=== PATIENT | female | born 1965 | race Caucasian/White ===

== ENCOUNTER → 2016-12-20 | Outpatient (CLI) | payer OTHER ==
--- NOTE | 2016-12-20 16:24 | CT ---
EXAMINATION TYPE: CT chest abdomen w con DATE OF EXAM: 12/20/2016 11:06 AM INDICATION: LUQ swelling and pain COMPARISON: NONE CT DLP: 664.3 mGycm CONTRAST: Performed with Oral Contrast and with IV Contrast, patient injected with 100 mL of Omnipaque 300. TECHNIQUE: Axial images at 5 mm thick sections. Reconstructed images in the coronal plane. Delayed images through the kidneys. FINDINGS: CT CHEST: Portion of the thyroid visualized is normal. There is some streak opacity within the posterior medial right lung base most likely on the basis of atelectasis. No suspicious masses are evident. No enlarged mediastinal or hilar adenopathy is evident. The ascending aorta diameter at the level of the main pulmonary artery is 2.6 cm. The main pulmonary artery diameter at the bifurcation is 2.[address] ABDOMEN: Liver: Normal Spleen: Normal Pancreas: Normal Adrenal glands: The adrenal glands are normal. Gallbladder: Normal Kidneys: No masses are evident. No hydronephrosis is present. There is a 2.6 cm cyst measuring 12 H [place] units on the lateral mid right kidney. A 0.7 cm nonobstructing left renal stone is likely w ithin the anterior superior pole left kidney couple of additional punctate calcifications on the left without evidence of obstruction cannot be excluded. Somewhat difficult to identify given the contras t excretion at the time of the exam. Delayed images were obtained through the kidneys, which remain unremarkable. Aorta: Vascular calcification is within the aorta. Inferior vena cava: Normal. IMPRESSIONS: 1. Probable mild streak atelectasis posterior medial right lung base. 2. Nonobstructing left renal stones.
== END | disposition home or self-care (01) ==
LOC: RADCTMAIN 10:07
PROVIDERS: ATTEND Family Medicine
DX: N20.0 Calculus of kidney (principal); Z85.9 Personal history of malignant neoplasm, unspecified
CPT/HCPCS: 71260; 74160; Q9967

== ENCOUNTER → 2017-01-14 | Outpatient (CLI) | payer OTHER ==
--- NOTE | 2017-01-15 08:24 | US ---
EXAMINATION TYPE: US mass soft tissue chest/back DATE OF EXAM: 01/14/2017 1:08 PM COMPARISON: NONE CLINICAL HISTORY: M79.9 Soft tissue mass. Patient feels lump from back around the side and ends in th e front on the left side for three months, area is painful. Scanned left side from back to front over palpable area per patient, as well as the right side for co mparison. No definite abnormality noted. No discrete solid or cystic areas are identified. Subcutaneous tissue and muscular tissue signal appe ars normal. IMPRESSION: 1. No discrete abnormality by ultrasound. If additional evaluation would be of benefit, consider MRI.
== END | disposition home or self-care (01) ==
LOC: RADUSWWP 12:46
PROVIDERS: ATTEND Family Medicine
DX: M79.9 Soft tissue disorder, unspecified (principal)

== ENCOUNTER → 2017-02-17 | Outpatient (CLI) | payer OTHER ==
--- NOTE | 2017-02-17 12:06 | US ---
EXAMINATION TYPE: US kidneys/renal and bladder DATE OF EXAM: 02/17/2017 COMPARISON: CT chest and abdomen December 20, 2016 CLINICAL HISTORY: N28.1 R Renal Cyst. EXAM MEASUREMENTS: Right Kidney: 11.0 x 4.5 x 4.5 cm Left Kidney: 10.6 x 4.2 x 4.7 cm Right Kidney: lateral cyst measuring 2.1 x 2.4 x 2.6 Left Kidney: 1.0 x 0.6 x 0.9cm Bladder: wnl Bilateral Jets seen: Yes There is no evidence for hydronephrosis at this point in time. No nephrolithiasis is seen. No ashly rning solid or cystic masses are identified. The urinary bladder is anechoic. It is not greatly dis tended. Bilateral ureteral jets are seen. A 2.6 cm simple appearing cyst right kidney mid to lower po le level is redemonstrated. Technologist thomas shadowing 9 mm focus centrally in left kidney correlat ing with calculus on CT. IMPRESSION: Simple 2.6 cm cyst right kidney is redemonstrated. There is nonobstructing 9 mm calculus centrally in left kidney also again seen. No significant new findings are evident.
== END | disposition home or self-care (01) ==
LOC: RADUSWWP 09:46
PROVIDERS: ATTEND Internal Medicine Nephrology
DX: N28.1 Cyst of kidney, acquired (principal); N20.0 Calculus of kidney
CPT/HCPCS: 76770

== ENCOUNTER → 2017-06-04 | Outpatient (CLI) | payer OTHER ==
--- NOTE | 2017-06-04 19:01 | US ---
EXAMINATION TYPE: US venous doppler duplex LE RT DATE OF EXAM: 06/04/2017 6:48 PM COMPARISON: NONE CLINICAL HISTORY: M79.661 Pain of R lower Leg. right calf pain SIDE PERFORMED: Right TECHNIQUE: The lower extremity deep venous system is examined utilizing real time linear array sonog yusra with graded compression, doppler sonography and color-flow sonography. VESSELS IMAGED: External Iliac Vein (EIV) Common Femoral Vein Deep Femoral Vein Greater Saphenous Vein * Femoral Vein Popliteal Vein Small Saphenous Vein * Proximal Calf Veins (* superficial vessels) Grayscale, color doppler, spectral doppler imaging performed of the deep veins of the lower extremiti y. There is normal flow, compressibility, vascular waveforms. No evidence of DVT right leg IMPRESSION: Right Leg: Negative for DVT
== END ==
LOC: RADUSMAIN 18:11
PROVIDERS: ATTEND Nurse Practitioner Family
DX: M79.661 Pain in right lower leg (principal)

== ENCOUNTER → 2018-04-02 | Outpatient (CLI) | payer OTHER ==
--- NOTE | 2018-04-02 15:16 | CT ---
EXAMINATION TYPE: CT chest w con DATE OF EXAM: 04/02/2018 COMPARISON: 12/20/2016 HISTORY: 52-year-old female cough and painful respiration , right sided chest pain and difficulty gretta athing. TECHNIQUE: Contiguous axial scanning of the chest after the administration of 100ml mL of Isovue 370. Coronal/sagittal reconstructions performed. CT DLP: 290.6mGycm. Automatic exposure control utilized for a dose reduction. FINDINGS: Heart normal size without pericardial effusion. Aorta normal caliber with conventional arch vessel branching anatomy. Prominent but nonenlarged 1.37 m subcarinal lymph node. Some peribronchial opacity along the right perihilar region along the medial segment right middle lob e bronchus. The segmental bronchus is narrowed and there is medial segmental right middle lobe consol idation. Some additional scattered nodular densities are present in the right middle lobe. Some focal patchy density medial basilar right lower lobe, axial image 51. No pleural effusion. Visualized upper abdomen shows a 1.8 cm left adrenal nodule and a 1.0 cm right adrenal nodule. These were present on 12/20/2016 but are slightly larger having measured 1.3 and 0.9 cm, previously. Suspect ed to represent adrenal adenomas. Bones: No osseous destructive process. IMPRESSION: 1. Extensive medial segment right middle lobe consolidation suggestive of pneumonia. There may be an additional small infiltrate medial right base. 2. Borderline sized subcarinal lymph node and some soft tissue thickening versus additional consolida tion tracking along the medial segment right middle lobe bronchus. Follow-up CT after successful kavitha tment to exclude the possibility of an underlying mass. 3. Redemonstrated adrenal gland nodules, slightly larger from 12/20/2016 measuring up to 1.8 cm probab ly representing adrenal adenomas. These can also be reassessed at follow-up.
== END | disposition home or self-care (01) ==
LOC: RADCTMAIN 14:23
PROVIDERS: ATTEND Nurse Practitioner Family
DX: E27.8 Other specified disorders of adrenal gland (principal); R05 Cough; R07.1 Chest pain on breathing
CPT/HCPCS: 71260; Q9967

== ENCOUNTER → 2018-04-24 | Outpatient (CLI) | payer OTHER ==
--- NOTE | 2018-04-24 14:50 | CT ---
EXAMINATION TYPE: CT chest w con DATE OF EXAM: 04/24/2018 COMPARISON: CT chest April 02, 2018 and older study December 20, 2016. HISTORY: Adrenal mass and enlarged lymph node per order. Prior abnormal CT. CT DLP: 563 mGycm. Automated Exposure Control for Dose Reduction was Utilized. TECHNIQUE: CT scan of the thorax is performed following with IV Contrast, patient injected with 100 mL of Isovue 370. FINDINGS: LUNGS: Mild underlying emphysematous change is felt present. There is near complete interval resoluti on of right middle lobe consolidation with faint areas of groundglass and linear opacity remaining pr esent. No new suspicious groundglass opacity or consolidation is identified. No pleural effusion or p neumothorax is seen bilaterally. MEDIASTINUM: There are no greater than 1 cm hilar or mediastinal lymph nodes. No cardiomegaly or pe ricardial effusion is seen. OTHER: Redemonstration of left adrenal nodule measuring 1.7 x 1.0 cm axial image 56 and smaller nodul e centrally measuring 1.4 x 0.9 cm a right adrenal that are not significantly changed from last 2 exa ms thus favoring benign etiology. Cholecystectomy clips are redemonstrated. Large splenule anteriorly axial image 58 is redemonstrated. Mild to moderate multilevel spurring in thoracic spine is redemons trated. IMPRESSION: Interval near complete resolution of right middle lobe consolidation without suspicious r esidual nodule. Stable small bilateral adrenal nodules since November 2016 favor benign, can be confirme d with adrenal protocol MRI if desired.
== END | disposition home or self-care (01) ==
LOC: RADCTMAIN 13:30
PROVIDERS: ATTEND Nurse Practitioner Family
DX: J18.1 Lobar pneumonia, unspecified organism (principal); E27.8 Other specified disorders of adrenal gland
CPT/HCPCS: 71260; Q9967

== ENCOUNTER → 2018-09-18 | Outpatient (CLI) | payer OTHER | END | disposition home or self-care (01) | LOC: LABWHC1 15:58 | PROVIDERS: ATTEND Ophthalmology | DX: H47.11 Papilledema associated with increased intracranial pressure (principal) | CPT/HCPCS: 36415; 82565 ==

== ENCOUNTER → 2018-09-21 | Outpatient (CLI) | payer OTHER ==
--- NOTE | 2018-09-21 08:35 | MR ---
EXAMINATION TYPE: MR brain wo/w con DATE OF EXAM: 09/21/2018 COMPARISON: NONE HISTORY: Papilledema, left eye TECHNIQUE: Multiplanar, multisequence images of the brain and brainstem is performed without and with IV contras t, utilizing 7.5 mL intravenous Gadavist . FINDINGS: Diffusion weighted images demonstrate no evidence of a recent infarct or other diffusion ab normality. There is no extra-axial fluid collection. There are few T2/FLAIR hyperintense foci within the subcortical white matter of the frontal lobes such as on FLAIR and axial fat sat image 19 on the left and 17 on the right. Pulsation artifact is seen through the cerebral hemispheres. The ventricul ar system and cisternal spaces are normal in size and appearance. The brain volume is age appropriat e. Midline structures demonstrate normal morphology. The craniocervical junction appears within normal limits. Post contrast images demonstrate no abnormal enhancement. Moderate mucosal thickening is see n within the ethmoid sinuses. The remaining visualized sinuses are clear and the globes are intact. N o excessive perineural/subarachnoid fluid surrounding the optic nerves. No undulation of the optic ne rves. No flattening of the globes posteriorly. No partially empty sella turcica. Findings are all summers ited by patient motion. IMPRESSION: 1. The exam is slightly limited by patient motion however there is no excessive perineural subarachno id fluid surrounding the optic nerves, no undulation of the optic nerves, and no evidence of a partia lly into sella turcica. Findings that could be seen in increased intracranial pressure and relate to this patient's papilledema. 2. No abnormal intracranial enhancement. Again although the exam including the orbits is limited by p atient motion there is no gross evidence of intraconal or extraconal mass. No gross evidence of orbit al mass. 3. Mild burden nonspecific white matter change, most commonly on the basis of chronic microangiopathy however given the frontal lobe distribution findings could relate to sequela of migraines. 4. Moderate ethmoid paranasal sinus disease.
== END | disposition home or self-care (01) ==
LOC: RADMRIMAIN 07:08
PROVIDERS: ATTEND Ophthalmology
DX: I67.9 Cerebrovascular disease, unspecified (principal); R90.82 White matter disease, unspecified
CPT/HCPCS: 70553; A9585

== ENCOUNTER 2020-07-09 16:19 | Emergency (ER) | payer OTHER ==
[2020-07-09 17:18] VITALS: TEMP 97.5
[2020-07-09 18:33] LABS: Basophils % (A) 0 %; Eosinophils # (A) 0.2 k/uL (0-0.7); Eosinophils % (A) 2 %; HCT 43.9 % (34.0-46.0); HGB 14.4 gm/dL (11.4-16.0); Lymphocytes # (A) 2.2 k/uL (1.0-4.8); Lymphocytes % (A) 24 %; MCHC 32.8 g/dL (31.0-37.0); MCV 91.4 fL (80.0-100.0); Mean Platelet Volume 7.8; Monocytes # (A) 0.5 k/uL (0-1.0); Monocytes % (A) 5 %; Neutrophils # (A) 6.1 k/uL (1.3-7.7); Neutrophils % (A) 67 %; Platelet Count 301 k/uL (150-450); RDW 13.2 % (11.5-15.5); WBC 9.1 k/uL (3.8-10.6)
[2020-07-09 18:46] LABS: ALT 28 U/L (4-34); AST 47 U/L (14-36); African American GFR (CKD) >90 (>60 ml/min/1.73 sqM); Albumin 3.9 g/dL (3.5-5.0); Alkaline Phosphatase 134 U/L (38-126); Anion Gap 5 mmol/L; Blood Urea Nitrogen 12 mg/dL (7-17); Calcium 9.2 mg/dL (8.4-10.2); Carbon Dioxide 25 mmol/L (22-30); Chloride 108 mmol/L (98-107); Glucose 95 mg/dL (74-99); Non-African American GFR(CKD) >90 (>60 ml/min/1.73 sqM); Potassium 4.1 mmol/L (3.5-5.1); Sodium 138 mmol/L (137-145); Total Bilirubin 0.4 mg/dL (0.2-1.3); Total Protein 6.9 g/dL (6.3-8.2)
[2020-07-09] MEDS ORDERED: SULFAMETHOX-TMP 800-160MG 1 EACH TAB PO STA (19:18)
[2020-07-09] MEDS ORDERED: SULFAMETH-TMP DS STARTER PACK 2 TAB BTL PO STA (19:18)
--- NOTE | 2020-07-09 19:18 | XR ---
EXAMINATION TYPE: XR hand complete LT DATE OF EXAM: 07/09/2020 COMPARISON: None HISTORY: Postop infection. Surgery. TECHNIQUE: 3 views FINDINGS: There is some narrowing of the IP joints and more noticeable at the DIP joint of the index finger. There is no fracture nor dislocation. There are no erosions. IMPRESSION: Osteoarthritis. No fracture seen.
--- NOTE | 2020-07-09 19:36 | ED ---
General Adult HPI - General Chief complaint: Recheck/Abnormal Lab/Rx Stated complaint: Post Op L Hand Infection Time Seen by Provider: 07/09/20 18:04 Source: patient, RN notes reviewed, old records reviewed Mode of arrival: ambulatory Limitations: no limitations - History of Present Illness Initial comments: 55-year-old female patient ED for evaluation. Patient reports that she had trigger finger surgery on her left hand 13 days ago. She reports over the last 3 days she's been having pain around the sutures proximal to the third and fourth MCP joint. She reports that she was able to express some drainage out of it. Denies any fevers. Denies any other acute complaints. Systemic: Pt denies fatigue, fever/chills, rash. Pt denies weakness, night sweats, weight loss. Neuro: Pt denies headache, visual disturbances, syncope or pre-syncope. HEENT: Pt denies ocular discharge or irritation, otalgia, rhinorrhea, pharyngitis or notable lymphadenopathy. Cardiopulmonary: Pt denies chest pain, SOB, heart palpitations, dyspnea on exertion. Abdominal/GI: Pt denies abdominal pain, n/v/d. : Pt denies dysuria, burning w/ urination, frequency/urgency. Denies new onset urinary or bowel incontinence. MSK: Pt denies myalgia, loss of strength or function in extremities. Neuro: Pt denies new onset weakness, paresthesias. - Related Data Previous Rx's Medication Instructions Recorded Ibuprofen [Motrin] 600 mg PO Q6HR PRN #20 tab 04/02/16 Sulfamethox-Tmp 800-160Mg [Bactrim 1 tab PO Q12HR #20 tab 07/09/20 DS 800-160 mg] Allergies Allergy/AdvReac Type Severity Reaction Status Date / Time prochlorperazine Allergy Unknown Verified 07/09/20 17:18 [From Compazine] prochlorperazine edisylate Allergy Unknown Verified 07/09/20 17:18 [From Compazine] prochlorperazine maleate Allergy Unknown Verified 07/09/20 17:18 [From Compazine] Review of Systems ROS Statement: Those systems with pertinent positive or pertinent negative responses have been documented in the HPI. ROS Other: All systems not noted in ROS Statement are negative. Past Medical History Past Medical History: Heart Failure, Hypertension History of Any Multi-Drug Resistant Organisms: None Reported Past Surgical History: Appendectomy, Section Additional Past Surgical History / Comment(s): "half a lung removed". right forearm surgery. left hand surgery Past Psychological History: No Psychological Hx Reported Smoking Status: Current every day smoker Past Alcohol Use History: Rare Past Drug Use History: Marijuana General Exam - General Exam Comments Initial Comments: Constitutional: NAD, AOX3, Pt has pleasant affect. HEENT: NC/AT, trachea midline, neck supple, no lymphadenopathy. External ears appear normal, without discharge. Mucous membranes moist. Eyes PERRLA, EOM intact. There is no scleral icterus. No pallor noted. Cardiopulmonary: RRR, no murmurs, rubs or gallops, no JVD noted. Lungs CTAB in anterior and posterior quiroz. No peripheral edema. Abdominal exam: Abdomen soft and non-distended. Neuro: CN II-XII grossly intact. No nuchal rigidity. No raccon eyes, no albright sign, no hemotympanum. No cervical spinal tenderness. MSK: Mild tenderness to the area proximal to the third and 4th metacarpal. No purulent drainage. No fluctuance. Very mild erythema. ROM of fingers intact. No tenderness to the flexor sheath. Limitations: no limitations Course Vital Signs 07/09/20 17:14 Temperature 97.5 F L Pulse Rate 86 Respiratory 18 Rate Blood Pressure 145/107 O2 Sat by Pulse 99 Oximetry Medical Decision Making - Medical Decision Making 55 old female patient to ED for possible infection of hand post surgery 13 days ago. No drainage is noted. Laboratory investigations are unremarkable and films displayed osteoarthritis no acute fracture seen. Patient initiated on Rocephin emergency department no discharge of Bactrim. Patient to follow-up with her surgeon tomorrow and return for any worsening symptoms. Case discussed and pt seen by Dr. Arteaga. - Lab Data Result diagrams: 07/09/20 18:22 07/09/20 18:22 Lab Results 07/09/20 07/09/20 07/09/20 Range/Units 18:22 18:22 18:22 WBC 9.1 (3.8-10.6) k/uL RBC 4.80 (3.80-5.40) m/uL Hgb 14.4 (11.4-16.0) gm/dL Hct 43.9 (34.0-46.0) % MCV 91.4 (80.0-100.0) fL MCH 30.0 (25.0-35.0) pg MCHC 32.8 (31.0-37.0) g/dL RDW 13.2 (11.5-15.5) % Plt Count 301 (150-450) k/uL Neutrophils % 67 % Lymphocytes % 24 % Monocytes % 5 % Eosinophils % 2 % Basophils % 0 % Neutrophils # 6.1 (1.3-7.7) k/uL Lymphocytes # 2.2 (1.0-4.8) k/uL Monocytes # 0.5 (0-1.0) k/uL Eosinophils # 0.2 (0-0.7) k/uL Basophils # 0.0 (0-0.2) k/uL Sodium 138 (137-145) mmol/L Potassium 4.1 (3.5-5.1) mmol/L Chloride 108 H (98-107) mmol/L Carbon Dioxide 25 (22-30) mmol/L Anion Gap 5 mmol/L BUN 12 (7-17) mg/dL Creatinine 0.72 (0.52-1.04) mg/dL Est GFR (CKD-EPI)AfAm >90 (>60 ml/min/1.73 sqM) Est GFR (CKD-EPI)NonAf >90 (>60 ml/min/1.73 sqM) Glucose 95 (74-99) mg/dL Plasma Lactic Acid Balaji 0.8 (0.7-2.0) mmol/L Calcium 9.2 (8.4-10.2) mg/dL Total Bilirubin 0.4 (0.2-1.3) mg/dL AST 47 H (14-36) U/L ALT 28 (4-34) U/L Alkaline Phosphatase 134 H (38-126) U/L Total Protein 6.9 (6.3-8.2) g/dL Albumin 3.9 (3.5-5.0) g/dL Disposition Clinical Impression: Hand pain, Post-operative infection Disposition: HOME SELF-CARE Condition: Stable Instructions (If sedation given, give patient instructions): Wound Infection (ED) Additional Instructions: Take antibiotics as directed. Follow up with surgeon tomorrow. Return to ED with any worsening symptoms. Prescriptions: Sulfamethox-Tmp 800-160Mg [Bactrim DS 800-160 mg] 1 tab PO Q12HR #20 tab Is patient prescribed a controlled substance at d/c from ED?: No Referrals: Tamiko Steel MD [Primary Care Provider] - 1-2 days
[2020-07-09 20:17] VITALS: BP 151/99; PULSE 70; RESP 16
== END 2020-07-09 20:00 | disposition home or self-care (01) ==
LOC: EC 16:19
DX: T81.40XA Infection following a procedure, unspecified, initial encounter (principal); M79.642 Pain in left hand; I11.0 Hypertensive heart disease with heart failure; I50.9 Heart failure, unspecified; F17.200 Nicotine dependence, unspecified, uncomplicated; Z88.8 Allergy status to other drugs, medicaments and biological substances
CPT/HCPCS: 36415; 80053; 83605; 85025; 87040; 73130; 99284; 96365; J0696

== ENCOUNTER → 2021-04-30 | Outpatient (CLI) | payer OTHER ==
--- NOTE | 2021-05-02 13:47 | MM ---
Reason for exam: screening (asymptomatic). Last mammogram was performed 14 years and 1 month ago. History: Patient is postmenopausal and history of other cancer. Took hormonal contraceptives for 5 years. Physical Findings: A clinical breast exam by your physician is recommended on an annual basis and results should be correlated with mammographic findings. MG Screening Mammo w CAD Bilateral CC, MLO, and XCCL view(s) were taken. Prior study comparison: October 16, 2018, mammogram, performed at [facility]. The breast tissue is heterogeneously dense. This may lower the sensitivity of mammography. There is no discrete abnormality. No significant changes when compared with prior studies. ASSESSMENT: Negative, BI-RAD 1 RECOMMENDATION: Routine screening mammogram of both breasts in 1 year.
== END | disposition home or self-care (01) ==
LOC: RADMAMWWP 09:58
PROVIDERS: ATTEND Family Medicine
DX: Z12.31 Encounter for screening mammogram for malignant neoplasm of breast (principal)
CPT/HCPCS: 77067

== ENCOUNTER → 2021-05-15 | Outpatient (CLI) | payer OTHER | END | disposition home or self-care (01) | LOC: LABWHC1 12:57 | PROVIDERS: ATTEND Obstetrics & Gynecology | DX: N83.202 Unspecified ovarian cyst, left side (principal) | CPT/HCPCS: 36415; 86304 ==

== ENCOUNTER 2021-06-14 08:16 | Day surgery (SDC) | payer OTHER ==
[2021-04-04 12:26] VITALS: BMI 27.4
[~2021-06-14 08:16] MED LIST: DEXAMETHASONE SOD PHOSPHATE 4 MG/ML 1 ML VIAL IV ONE; HYDROmorphone 0.5 MG/0.5 ML SYRINGE IVP PRN; LACTATED RINGERS 1,000 ML IV SCH; LIDOCAINE 1% (10MG/ML) FOR IV START INTRADERMA PRN; MIDAZOLAM 2 MG/2 ML VIAL IV PRN; ONDANSETRON 4 MG/2 ML VIAL IVP ONE
[2021-06-14] MEDS ORDERED: LACTATED RINGERS 1,000 ML IV ONE (08:53)
[2021-06-14] MEDS ORDERED: LIDOCAINE 1% (10MG/ML) FOR IV START INTRADERMA ONE (08:53)
[2021-06-14 08:58] VITALS: TEMP 97.5
[2021-06-14] MEDS ORDERED: PROPOFOL 10 MG/ML 20 ML VIAL IV ONE (09:22)
--- NOTE | 2021-06-14 09:28 | P.GSHP ---
History of Present Illness H&P Date: 06/14/21 Chief Complaint: Screening colonoscopy Is a 56-year-old female who presents today for screening colonoscopy. Patient has a significant complaints. Past Medical History Past Medical History: Asthma, Cancer, Heart Failure, COPD, Hearing Disorder / Deafness, Hyperlipidemia, Hypertension, Osteoarthritis (OA) Additional Past Medical History / Comment(s): POSSIBLE HEART FAILURE, MOLE PREG- TREATED WITH CHEMO History of Any Multi-Drug Resistant Organisms: None Reported Past Surgical History: Section, Cholecystectomy Additional Past Surgical History / Comment(s): "half of rt lung removed r/t mass", RIGHT HAND SURGERY. right forearm surgery-WITH HARDWARE. left hand surgery Past Anesthesia/Blood Transfusion Reactions: Previous Problems w/ Anesthesia Additional Past Anesthesia/Blood Transfusion Reaction / Comment(s): PATIENT STATES TAKES HER LONGER TO WAKE UP " Smoking Status: Current every day smoker - Past Family History Father Family Medical History: Cancer Medications and Allergies Home Medications Medication Instructions Recorded Confirmed Type Albuterol Sulfate [Albuterol 2 puff PO Q6H PRN 04/04/21 06/14/21 History Sulfate Hfa] Ipratropium-Albuterol Nebulize 3 ml INHALATION Q6H PRN 04/04/21 06/14/21 History [Duoneb 0.5 mg-3 mg/3 ml Soln] Loratadine [Claritin] 10 mg PO DAILY 04/04/21 06/14/21 History Oxybutynin Chloride [Ditropan] 5 mg PO DAILY 04/04/21 06/14/21 History Simvastatin [Zocor] 5 mg PO HS 04/04/21 06/14/21 History amLODIPine BESYLATE 5 mg PO HS 04/04/21 06/14/21 History lisinopriL [Zestril] 20 mg PO DAILY 04/04/21 06/14/21 History Allergies Allergy/AdvReac Type Severity Reaction Status Date / Time No Known Allergies Allergy Verified 06/14/21 08:34 Surgical - Exam Vital Signs Temp Pulse Resp BP Pulse Ox 97.5 F L 87 16 176/105 99 06/14/21 08:56 06/14/21 08:56 06/14/21 08:56 06/14/21 08:56 06/14/21 08:56 - General well developed, well nourished, no distress - Eyes PERRL - ENT normal pinna - Neck no masses - Respiratory normal expansion - Cardiovascular Rhythm: regular - Abdomen Abdomen: soft, non tender Assessment and Plan Assessment: We'll perform screening colonoscopy
--- NOTE | 2021-06-14 09:42 | P.OP ---
Date of Procedure: 06/14/21 Preoperative Diagnosis: Screening colonoscopy Postoperative Diagnosis: Normal colon Procedure(s) Performed: Colonoscopy Anesthesia: MAC Surgeon: Naldo Martin Pathology: none sent Condition: stable Disposition: PACU Description of Procedure: PROCEDURE: The patient was placed on the endoscopy table in the lateral position. Digital rectal examination was performed which revealed no abnormalities. T Flexible colonoscope was then placed in the patient's anus and passed throughout the entire colon. The ileocecal valve was visualized. The cecum, ascending, transverse, descending and sigmoid colon were normal. The rectum was normal as well. There were no masses, polyps or diverticula noted in the entire colon. SUMMARY OF FINDINGS: Normal colonoscopy.
[2021-06-14] MEDS ORDERED: hydrALAZINE HCL 20 MG/ML 1 ML VIAL ONE (09:55)
[2021-06-14] MEDS ORDERED: hydrALAZINE HCL 20 MG/ML 1 ML VIAL IV ONE (09:57)
[2021-06-14] MEDS ORDERED: hydrALAZINE HCL 20 MG/ML 1 ML VIAL IVP ONE (10:10)
[2021-06-14 10:13] VITALS: RESP 18
[2021-06-14 10:25] VITALS: BP 153/94; PULSE 86
== END 2021-06-14 10:49 | disposition home or self-care (01) ==
LOC: ORWHC2ENDO 08:16
PROVIDERS: ATTEND Surgery
DX: Z12.11 Encounter for screening for malignant neoplasm of colon (principal); J44.9 Chronic obstructive pulmonary disease, unspecified; I11.0 Hypertensive heart disease with heart failure; I50.9 Heart failure, unspecified; E78.5 Hyperlipidemia, unspecified; H91.90 Unspecified hearing loss, unspecified ear; M19.90 Unspecified osteoarthritis, unspecified site; Z92.21 Personal history of antineoplastic chemotherapy; Z90.49 Acquired absence of other specified parts of digestive tract; Z90.2 Acquired absence of lung [part of]; Z80.9 Family history of malignant neoplasm, unspecified; Z98.891 History of uterine scar from previous surgery; F17.200 Nicotine dependence, unspecified, uncomplicated; Z79.899 Other long term (current) drug therapy
CPT/HCPCS: J0360; J2704; G0121

== ENCOUNTER → 2021-06-21 | Outpatient (CLI) | payer OTHER ==
[2021-06-21 13:13] VITALS: BP 184/110; PULSE 81; RESP 18; TEMP 98.2
--- NOTE | 2021-06-21 13:37 | P.GSHP ---
History of Present Illness H&P Date: 06/21/21 Chief Complaint: inverted nipple right breast Neida is a 56 year old white female seen in consultation for Dr. Darling Caballero regarding an inverted right nipple. This has been like this for 3-4 years. This is not on the left side. She has no nipple discharge. She does not feel any lumps masses or nodules of concern in either breast. She has never had any surgery on her breast. She is not complaining of any trauma or infection in the breast. [place] [id number] which was benign BIRADS 1. Caffeine: rare nicotine: 1 PP/3 days chocolate: several times a week Family History: father: metastic disease ? from where maternal cousin: ? breast Hormone History: menarche: 11 (molar ), breast fed: no, age at first : 19 menopause: 29 chemotherapy for molar ; molar at about age 29; did not do a hysterectomy menopause: 37 hormones: none BCP: 2 years Surgical history: gallbladder lung cancer 2019 right arm plate and screws Medical History: HTN Social History: Nicotine: One pack every 3 days Alcohol: none drugs: Marijuana approximately 3 times a month - Constitutional Constitutional: Denies chills, Denies fever - EENT Eyes: denies blurred vision, denies pain Ears: bilateral: decreased hearing, deny: tinnitus Ears, nose, mouth and throat: Denies headache, Denies sore throat - Breasts Breasts: bilateral: as per HPI - Cardiovascular Cardiovascular: Denies chest pain, Denies shortness of breath - Respiratory Comment: history of lung cancer, asthma Respiratory: Reports as per HPI - Gastrointestinal Gastrointestinal: Denies abdominal pain, Denies diarrhea, Denies nausea, Denies vomiting - Genitourinary (Female) Genitourinary: Denies dysuria, Denies hematuria - Menstruation Menstruation: Reports postmenopausal - Musculoskeletal Comment: arthritis - Integumentary Integumentary: Denies pruritus, Denies rash - Neurological Neurological: Denies numbness, Denies weakness - Psychiatric Psychiatric: Denies anxiety, Denies depression - Endocrine Endocrine: Denies fatigue, Denies weight change - Hematologic/Lymphatic Comment: none - Allergic/Immunologic Allergic/Immunologic: Reports seasonal allergies Past Medical History Past Medical History: Asthma, Cancer, Heart Failure, COPD, Hearing Disorder / Deafness, Hyperlipidemia, Hypertension, Osteoarthritis (OA) Additional Past Medical History / Comment(s): POSSIBLE HEART FAILURE, MOLE PREG- TREATED WITH CHEMO History of Any Multi-Drug Resistant Organisms: None Reported Past Surgical History: Section, Cholecystectomy Additional Past Surgical History / Comment(s): "half of rt lung removed r/t mass", RIGHT HAND SURGERY. right forearm surgery-WITH HARDWARE. left hand surgery Past Anesthesia/Blood Transfusion Reactions: Previous Problems w/ Anesthesia Additional Past Anesthesia/Blood Transfusion Reaction / Comment(s): PATIENT STATES TAKES HER LONGER TO WAKE UP " Past Psychological History: No Psychological Hx Reported Smoking Status: Current every day smoker Past Alcohol Use History: Rare Additional Past Alcohol Use History / Comment(s): STARTED SMOKING AT AGE 16 SMOKES 9 CIG A DAY Past Drug Use History: Marijuana Additional Drug Use History / Comment(s): OCCASIONAL USE - Past Family History Father Family Medical History: Cancer Medications and Allergies Home Medications Medication Instructions Recorded Confirmed Type Albuterol Sulfate [Albuterol 2 puff PO Q6H PRN 04/04/21 06/21/21 History Sulfate Hfa] Ipratropium-Albuterol Nebulize 3 ml INHALATION Q6H PRN 04/04/21 06/21/21 History [Duoneb 0.5 mg-3 mg/3 ml Soln] Loratadine [Claritin] 10 mg PO DAILY 04/04/21 06/21/21 History Oxybutynin Chloride [Ditropan] 5 mg PO DAILY 04/04/21 06/21/21 History Simvastatin [Zocor] 5 mg PO HS 04/04/21 06/21/21 History amLODIPine BESYLATE 5 mg PO HS 04/04/21 06/21/21 History lisinopriL [Zestril] 20 mg PO DAILY 04/04/21 06/21/21 History Allergies Allergy/AdvReac Type Severity Reaction Status Date / Time No Known Allergies Allergy Verified 06/21/21 13:10 Surgical - Exam Vital Signs Temp Pulse Resp BP Pulse Ox 98.2 F 81 18 184/110 99 06/21/21 13:10 06/21/21 13:10 06/21/21 13:10 06/21/21 13:10 06/21/21 13:10 BMI 28.6 - General no distress - Eyes normal ocular movement - ENT normal nares - Neck trachea midline - Respiratory normal respiratory effort, clear to auscultation - Cardiovascular Rhythm: regular Heart Sounds: normal: S1, S2 - Abdomen Abdomen: soft, non tender, no guarding, no rigid, no rebound - Integumentary normal turgor - Neurologic no disoriented, no combative - Musculoskeletal normal gait, normal posture - Psychiatric oriented to time, oriented to person, oriented to place, speech is normal, memor y intact Breast Exam: BRA: 40G inspection: Right nipple inverted, bilateral grade 3 ptosis Palpation: Right breast: Multiple positional exam fibrocystic changes no dominant masses or nodules of concern, right nipple inverted Right axilla: No adenopathy of concern Left breast: Multi-positional exam fibrocystic changes no dominant masses or nodules of concern no nipple inversion Left axilla: No adenopathy of concern Results Bilateral mammogram reviewed with Dr. Bar, no specific lesions of concern identified Assessment and Plan Assessment: Impression: 1. Bilateral fibrocystic breast changes 2. Right nipple inversion/chronic 3. Personal history of breast cancer 4. Bilateral mammogram BIRADS 1 [place] [id number] Plan: 1. Ultrasound behind area of right nipple, with follow up after this CC: Dr. Tamiko Soler
== END ==
LOC: WWCWWP 12:43
PROVIDERS: ATTEND Surgery
DX: Z53.9 Procedure and treatment not carried out, unspecified reason (principal)

== ENCOUNTER → 2021-06-25 | Outpatient (CLI) | payer OTHER ==
--- NOTE | 2021-06-25 13:57 | USB ---
Reason for exam: clinical finding. History: Patient is postmenopausal and history of other cancer. Took hormonal contraceptives for 5 years. Physical Findings: Nurse did not find any significant physical abnormalities on exam. US Breast Limited RT Right limited breast ultrasound including focal area of concern, retroareolar and axilla demonstrates a 0.4 x 0.3 x 0.3cm oval, solid, hyperechoic lesion at 4 o'clock, a 0.4 x 0.5 x 0.2cm oval, irregular, hypoechoic lesion at 6 o'clock for which a biopsy is recommended, duct ectasia at the posterior nipple and a 1.0 x 1.1 x 0.7cm lymph node at the axilla These results were verbally communicated with the patient and result sheet given to the patient on 06/25/21. ASSESSMENT: Suspicious, BI-RAD 4 RECOMMENDATION: Ultrasound core biopsy of the right breast. Called office with mammographic findings and has scheduled an appointment for the patient for 07/20/21 at 8:[address] Camacho. Biopsy scheduled for 07/20/21 at 10:30. PRELIMINARY REPORT CALLED AND FAXED TO DR. CAMACHO ON 06/25/21.
== END | disposition home or self-care (01) ==
LOC: RADUSWWP 10:26
PROVIDERS: ATTEND Surgery
DX: N64.53 Retraction of nipple (principal)

== ENCOUNTER → 2021-07-20 | Outpatient (CLI) | payer OTHER ==
[2021-07-20 08:54] VITALS: BP 129/90; PULSE 80; RESP 18; TEMP 97.9
--- NOTE | 2021-07-20 09:11 | P.PN ---
Subjective Progress Note Date: 07/20/21 Principal diagnosis: Abnormal right breast ultrasound Neida is a 56 year old white female seen in consultation for Dr. Darling Steel regarding an inverted right nipple. This has been like this for 3-4 years. This is not on the left side. She has no nipple discharge. She does not feel any lumps masses or nodules of concern in either breast. She has never had any surgery on her breast. She is not complaining of any trauma or infection in the breast. [place] [id number] which was benign BIRADS 1. The patient subsequently underwent an ultrasound of the right breast on [id number]. Ultrasound revealed a 0.4 x 0.3 cm solid lesion at 4:00 a 0.4 x 0.5 cm irregular hypoechoic lesion at 6:00 for which biopsy was recommended, duct ectasia at the posterior nipple and a 1 x 1.1 cm lymph node in the axilla. This was considered to be suspicious BIRADS 4 and ultrasound-guided core biopsy of the right breast was recommended. Caffeine: rare nicotine: 1 PP/3 days chocolate: several times a week Family History: father: metastic disease ? from where maternal cousin: ? breast Hormone History: menarche: 11 (molar ), breast fed: no, age at first : 19 menopause: 29 chemotherapy for molar ; molar at about age 29; did not do a hysterectomy menopause: 37 hormones: none BCP: 2 years Surgical history: gallbladder lung cancer 2019 right arm plate and screws Medical History: HTN Social History: Nicotine: One pack every 3 days Alcohol: none drugs: Marijuana approximately 3 times a month - Constitutional Constitutional: Denies chills, Denies fever - EENT Eyes: denies blurred vision, denies pain Ears: bilateral: decreased hearing, deny: tinnitus Ears, nose, mouth and throat: Denies headache, Denies sore throat - Breasts Breasts: bilateral: as per HPI - Cardiovascular Cardiovascular: Denies chest pain, Denies shortness of breath - Respiratory Comment: history of lung cancer, asthma Respiratory: Reports as per HPI - Gastrointestinal Gastrointestinal: Denies abdominal pain, Denies diarrhea, Denies nausea, Denies vomiting - Genitourinary (Female) Genitourinary: Denies dysuria, Denies hematuria - Menstruation Menstruation: Reports postmenopausal - Musculoskeletal Comment: arthritis - Integumentary Integumentary: Denies pruritus, Denies rash - Neurological Neurological: Denies numbness, Denies weakness - Psychiatric Psychiatric: Denies anxiety, Denies depression - Endocrine Endocrine: Denies fatigue, Denies weight change - Hematologic/Lymphatic Comment: none - Allergic/Immunologic Allergic/Immunologic: Reports seasonal allergies Objective - Vital Signs Vital signs: Vital Signs Temp 97.9 F 07/20/21 08:51 Pulse 80 07/20/21 08:51 Resp 18 07/20/21 08:51 BP 129/90 07/20/21 08:51 Pulse Ox 99 07/20/21 08:51 Intake & Output 07/19/21 07/20/21 07/20/21 18:59 06:59 18:59 Weight 81.647 kg - Constitutional General appearance: Present: cooperative - EENT Eyes: Present: EOMI ENT: Present: hearing grossly normal - Neck Neck: Present: normal ROM - Respiratory Respiratory: bilateral: CTA - Cardiovascular Rhythm: regular Heart sounds: normal: S1, S2 - Integumentary Integumentary: Present: normal turgor - Musculoskeletal Musculoskeletal: Present: gait normal - Psychiatric Psychiatric: Present: A&O x's 3, appropriate affect, intact judgment & insight - Additional findings Additional findings: Breast examination: Examination is limited to the right breast cyst patient has had a recent breast exam nipple remains inverted with no discrete lump or mass palpated Assessment and Plan Assessment: Impression: Inverted right nipple Abnormal right breast ultrasound finding Plan: Ultrasound core biopsy area of concern in the right breast patient to follow-up for results afterwards CC: Dr. Tamiko Steel
== END | disposition home or self-care (01) ==
LOC: WWCWWP 08:31
PROVIDERS: ATTEND Surgery
DX: Z53.9 Procedure and treatment not carried out, unspecified reason (principal)

== ENCOUNTER → 2021-07-20 | Day surgery (SDC) | payer OTHER ==
[2021-07-20 09:42] VITALS: RESP 16
[2021-07-20 11:15] VITALS: BP 121/82; PULSE 60; TEMP 97.4
--- NOTE | 2021-07-20 12:06 | USB ---
EXAMINATION TYPE: US biopsy breast VAD RT, MG postbiopsy diagnostic mammo RT wo CAD DATE OF EXAM: 07/20/2021 CLINICAL HISTORY: 56-year-old female R92.8 ABN MAMMO. TECHNIQUE: Ultrasound guided core biopsy of right breast. COMPARISON: 06/25/2021, 04/30/2021 FINDINGS: The procedure of ultrasound guided core biopsy was explained to the patient. Benefits, alt ernatives, and risks were discussed. An informed consent was then obtained. The intended biopsy target, the 5 mm oval hypoechoic structure at the 6:00 position was identified an d targeted for biopsy. Due to the patient's nipple retraction on this side, Dr. Mio Winchester requested rescanning of the subar eolar and periareolar region. This shows unchanged mild duct ectasia as seen previously. No abnormal filling defect or other suspicious findings seen. The patient was placed in supine positioning for imaging and for the procedure. The overlying skin w as prepped and draped in usual sterile fashion. Lidocaine was used as anesthetic into the skin and s ubcutaneous tissue up to area of concern in the 6:00 right breast. Under ultrasound guidance, a 13-gauge vacuum-assisted mammotome biopsy gun was used to obtain 4 core samples. Following this, a wing clip was left in lesion. The patient tolerated the procedure well without any immediate complication. The patient was kept in the radiology department for short stay after the procedure and then discharged home in stable condi tion. Postbiopsy mammogram shows the clip in place, more along the 5:00 position. IMPRESSION: Successful, uncomplicated ultrasound guided core biopsy of tiny 5 mm area of concern in the 6:00 righ t breast. Low suspicion at time of biopsy. Full pathology results to follow. If benign results, six-month follow-up mammogram could be performed.
== END ==
LOC: RADUSWWP 08:32
PROVIDERS: ATTEND Surgery
DX: R92.8 Other abnormal and inconclusive findings on diagnostic imaging of breast (principal); N60.11 Diffuse cystic mastopathy of right breast
CPT/HCPCS: 88305; 77065; 19083; A4648; J2001

== ENCOUNTER → 2021-08-03 | Outpatient (CLI) | payer OTHER ==
--- NOTE | 2021-08-03 13:26 | P.PN ---
Subjective Progress Note Date: 08/03/21 Principal diagnosis: ultrasound core biopsy results/benign Neida is a 56 year old white female seen in consultation for Dr. Darling Caballero regarding an inverted right nipple. This has been like this for 3-4 years. This is not on the left side. She has no nipple discharge. She does not feel any lumps masses or nodules of concern in either breast. She has never had any surgery on her breast. She is not complaining of any trauma or infection in the breast. She had [place] [id number] which was benign BIRADS 1. she had an ultrasound of the right breast)[id number] based on this an ultrasound core biopsy was recommended. Nothing of concern was found beneath the nipple areolar complex. A 0.4 x 0.5 cm irregular lesion at 6:00 was noted. Biopsy was done on [id number] pathology was benign fibrocystic changes. Additional scanning behind the nipple areolar complex did not reveal any cause for the nipple inversion. Objective - Constitutional General appearance: Present: cooperative - EENT Eyes: Present: EOMI ENT: Present: hearing grossly normal - Neck Neck: Present: normal ROM - Respiratory Respiratory: bilateral: CTA - Cardiovascular Heart sounds: normal: S1, S2 - Integumentary Integumentary Comment(s): biopsy site clean and dry no evidence of infection Integumentary: Present: normal turgor Assessment and Plan Assessment: Impression: 1. Patient status post ultrasound core biopsy of right breast pathology benign 2 fibrocystic breast changes Plan: right breast mammogram and ultrasound with physician exam in 6 months patient to follow up sooner if any questions or concerns CC: Dr. Caballero
[2021-08-03 13:28] VITALS: BP 154/108; PULSE 97; RESP 18; TEMP 97.6
== END | disposition home or self-care (01) ==
LOC: WWCWWP 13:16
PROVIDERS: ATTEND Surgery
DX: Z53.9 Procedure and treatment not carried out, unspecified reason (principal)

== ENCOUNTER → 2022-01-22 | Outpatient (CLI) | payer OTHER ==
--- NOTE | 2022-01-22 13:54 | MM ---
Reason for Exam: Follow-up at short interval from prior study. Last screening mammogram was performed 9 month(s) ago. Patient History: Menarche at age 12. First Full-Term at age 19. Left ovary removed at age 38. Right ovary removed at age 38. Hysterectomy at age 38. Postmenopausal. Ovarian cancer, age 25. Patient used Hormonal Contraceptives for 5 years. 07/20/2021, Benign Core Biopsy on the right side. Risk Values: Kymberly 5 year model risk: 1.4%. NCI Lifetime model risk: 8.3%. Film Views: 3D and 2D Synthesized Right CC views were taken. 3D and 2D Synthesized Right MLO views were taken. Right LM views were taken. Prior Study Comparison: 10/16/2018 Screening Mammogram, [facility]. 04/30/2021 Bilateral Screening Mammogram, [facility]. 07/20/2021 Right Diagnostic Mammogram, [facility]. Tissue Density: Right: The breast tissue is heterogeneously dense. This may lower the sensitivity of mammography. Findings: Analyzed By CAD. Microclip 5-6 o'clock anterior right breast corresponds to the site of recent benign biopsy. Small area of low density circumscribed 5 mm nodularity 8:00 position middle to posterior depth is unchanged from 04/30/2021 on the CC view. Unchanged back to 2018 on the MLO view compatible with a benign etiology. No significant change from prior exams. Overall Assessment: Benign, BI-RAD 2 Management: Screening Mammogram of both breasts in 6 months. A clinical breast exam by your physician is recommended on an annual basis and results should be correlated with mammographic findings. This exam should not preclude additional follow-up of suspicious palpable abnormalities. Also, the patient should continue monthly self breast exams. Results were given to the patient verbally at the time of exam. Electronically signed and approved by: Adonis Bar M.D. Radiologist
== END | disposition home or self-care (01) ==
LOC: RADMAMWWP 12:42
PROVIDERS: ATTEND Surgery
DX: R92.8 Other abnormal and inconclusive findings on diagnostic imaging of breast (principal)
CPT/HCPCS: 77065; G0279; 77061

== ENCOUNTER → 2022-05-27 | Outpatient (CLI) | payer OTHER ==
--- NOTE | 2022-05-28 09:20 | MM ---
Reason for Exam: Screening (asymptomatic). Last mammogram was performed 1 year(s) and 1 month(s) ago. Patient History: Menarche at age 12. First Full-Term at age 19. Left ovary removed at age 38. Right ovary removed at age 38. Hysterectomy at age 38. Postmenopausal. Ovarian cancer, age 25. Patient used Hormonal Contraceptives for 5 years. 07/20/2021, Benign Core Biopsy on the right side. Risk Values: Kymberly 5 year model risk: 1.4%. NCI Lifetime model risk: 8.3%. Prior Study Comparison: 04/30/2021 Bilateral Screening Mammogram, [facility]. 07/20/2021 Right Diagnostic Mammogram, [facility] 01/22/2022 Right MG 3D diag mammo w/cad RT, [facility]. Tissue Density: The breast tissue is heterogeneously dense. This may lower the sensitivity of mammography. Findings: Analyzed By CAD. There is no suspicious group of microcalcifications or new suspicious mass in either breast. Overall Assessment: Benign, BI-RAD 2 Management: Screening Mammogram of both breasts in 1 year. A clinical breast exam by your physician is recommended on an annual basis and results should be correlated with mammographic findings. Electronically signed and approved by: Gurdeep Rao M.D. Radiologis
== END | disposition home or self-care (01) ==
LOC: RADMAMWWP 08:20
PROVIDERS: ATTEND Surgery
DX: Z12.31 Encounter for screening mammogram for malignant neoplasm of breast (principal)
CPT/HCPCS: 77067

== ENCOUNTER → 2022-06-13 | Outpatient (CLI) | payer OTHER ==
[2022-06-13 10:42] VITALS: BP 137/96; PULSE 85; RESP 19; TEMP 97.8
--- NOTE | 2022-06-13 10:55 | P.PN ---
Subjective Progress Note Date: 06/13/22 Principal diagnosis: Fibrocystic breast changes/inverted right nipple Neida is a 57 year old white female seen in consultation for Dr. Darling Caballero regarding an inverted right nipple. This has been present for 3-4 years. This is not on the left side. She has no nipple discharge. She does not feel any lumps masses or nodules of concern in either breast. She has never had any surgery on her breast. She was not complaining of any trauma or infection in the breast. She [place] [id number] which was benign BIRADS 1. Am ultrasound of the right breast was done which led to a core biopsy. this was for a 0.4 by 0.5 cm lesion at 6 OClock. Biopsy was done on 07-20-21 which was benign. She had a bilateral mammogram on 05-27-22 which was BIRAD 2. Patient does not feel any lumps masses or nodules of concern in either breast. The patient has noted a rash between her breast. She states it itches. She develops chronic rashes secondary to the size of her breast. She is unable to treat these so that they do not recur. She also complains of shoulder notching and back pain related to the size of her breast. Additionally she cannot find processes secondary to the large size of her breast. This causes her anxiety. The breasts are very large and hard to do thorough examination secondary to the size. She does have a prior personal history of cancer and is concerned secondary to the size of her breast. Additionally she is concerned secondary to the chronically inverted nipple on the right side. Caffeine: rare nicotine: 1 PP/3 days chocolate: several times a week Family History: father: metastic disease ? from where maternal cousin: ? 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 Hormone History: menarche: 11 (molar ), breast fed: no, age at first : 19 menopause: 29 chemotherapy for molar ; molar at about age 29; did not do a hysterectomy menopause: 37 hormones: none BCP: 2 years Surgical history: gallbladder lung cancer 2019 right arm plate and screws Medical History: HTN Social History: Nicotine: One pack every 3 days Alcohol: none drugs: Marijuana approximately 3 times a month - Constitutional Constitutional: Denies chills, Denies fever - EENT Eyes: denies blurred vision, denies pain Ears: bilateral: decreased hearing, deny: tinnitus Ears, nose, mouth and throat: Denies headache, Denies sore throat - Breasts Breasts: bilateral: as per HPI - Cardiovascular Cardiovascular: Denies chest pain, Denies shortness of breath - Respiratory Comment: history of lung cancer, asthma Respiratory: Reports as per HPI - Gastrointestinal Gastrointestinal: Denies abdominal pain, Denies diarrhea, Denies nausea, Denies vomiting - Genitourinary (Female) Genitourinary: Denies dysuria, Denies hematuria - Menstruation Menstruation: Reports postmenopausal - Musculoskeletal Comment: arthritis - Integumentary Integumentary: Denies pruritus, Denies rash - Neurological Neurological: Denies numbness, Denies weakness - Psychiatric Psychiatric: Denies anxiety, Denies depression - Endocrine Endocrine: Denies fatigue, Denies weight change - Hematologic/Lymphatic Comment: none - Allergic/Immunologic Allergic/Immunologic: Reports seasonal allergies Past Medical History Past Medical History: Asthma, Cancer, Heart Failure, COPD, Hearing Disorder / Deafness, Hyperlipidemia, Hypertension, Osteoarthritis (OA) Additional Past Medical History / Comment(s): POSSIBLE HEART FAILURE, MOLE PREG- TREATED WITH CHEMO History of Any Multi-Drug Resistant Organisms: None Reported Past Surgical History: Section, Cholecystectomy Additional Past Surgical History / Comment(s): "half of rt lung removed r/t mass", RIGHT HAND SURGERY. right forearm surgery-WITH HARDWARE. left hand surgery Past Anesthesia/Blood Transfusion Reactions: Previous Problems w/ Anesthesia Additional Past Anesthesia/Blood Transfusion Reaction / Comment(s): PATIENT STATES TAKES HER LONGER TO WAKE UP " Past Psychological History: No Psychological Hx Reported Smoking Status: Current every day smoker Past Alcohol Use History: Rare Additional Past Alcohol Use History / Comment(s): STARTED SMOKING AT AGE 16 SMOKES 9 CIG A DAY Past Drug Use History: Marijuana Additional Drug Use History / Comment(s): OCCASIONAL USE - Past Family History Father Family Medical History: Cancer Medications and Allergies Home Medications Medication Instructions Recorded Confirmed Type Albuterol Sulfate [Albuterol 2 puff PO Q6H PRN 04/04/21 06/21/21 History Sulfate Hfa] Ipratropium-Albuterol Nebulize 3 ml INHALATION Q6H PRN 04/04/21 06/21/21 History [Duoneb 0.5 mg-3 mg/3 ml Soln] Loratadine [Claritin] 10 mg PO DAILY 04/04/21 06/21/21 History Oxybutynin Chloride [Ditropan] 5 mg PO DAILY 04/04/21 06/21/21 History Simvastatin [Zocor] 5 mg PO HS 04/04/21 06/21/21 History amLODIPine BESYLATE 5 mg PO HS 04/04/21 06/21/21 History lisinopriL [Zestril] 20 mg PO DAILY 04/04/21 06/21/21 History Allergies Allergy/AdvReac Type Severity Reaction Status Date / Time No Known Allergies Allergy Verified 06/21/21 13:10 Objective - Vital Signs Vital signs: Vital Signs Temp 97.8 F 06/13/22 10:40 Pulse 85 06/13/22 10:40 Resp 19 06/13/22 10:40 BP 137/96 06/13/22 10:40 Pulse Ox 99 06/13/22 10:40 FiO2 Intake & Output 06/12/22 06/13/22 06/13/22 18:59 06:59 18:59 Weight 81.647 kg - Exam BMI: 28.2 - Constitutional General appearance: Present: cooperative - EENT Eyes: Present: EOMI ENT: Present: hearing grossly normal - Neck Neck: Present: normal ROM - Respiratory Respiratory: bilateral: CTA - Cardiovascular Rhythm: regular Heart sounds: normal: S1, S2 - Gastrointestinal General gastrointestinal: Present: soft - Integumentary Integumentary: Present: normal turgor - Musculoskeletal Musculoskeletal: Present: gait normal - Psychiatric Psychiatric: Present: A&O x's 3, appropriate affect, intact judgment & insight - Additional findings Additional findings: Breast Exam: BRA: 40G inspection: Right nipple inverted, bilateral grade 3 ptosis Palpation: Right breast: Multiple positional exam fibrocystic changes no dominant masses or nodules of concern, right nipple inverted Right axilla: No adenopathy of concern Left breast: Multi-positional exam fibrocystic changes no dominant masses or nodules of concern no nipple inversion Left axilla: No adenopathy of concern Assessment and Plan Assessment: Impression: Macromastia Fibrocystic breast disease Chronically inverted right nipple fungal infection between breast Plan: Patient would like reduction mammoplasty secondary to chronic fungal infection, back pain, shoulder notching, and anxiety regarding cancer secondary to difficult to examine breast inverted nipple CC: Dr. Caballero
== END ==
LOC: WWCWWP 09:07
PROVIDERS: ATTEND Surgery
DX: N60.11 Diffuse cystic mastopathy of right breast (principal); B36.8 Other specified superficial mycoses; N62 Hypertrophy of breast; E66.9 Obesity, unspecified; Z68.28 Body mass index [BMI] 28.0-28.9, adult; F17.200 Nicotine dependence, unspecified, uncomplicated

== ENCOUNTER → 2023-01-01 | Outpatient (CLI) | payer OTHER ==
--- NOTE | 2023-01-02 07:27 | MR ---
EXAMINATION TYPE: MR cervical spine wo con DATE OF EXAM: 01/01/2023 INDICATION: Patient age:Female; 57 years old; Reason for study: M54.12; . Neck pain, stiffness, headaches, BUE radiculopathy. COMPARISON: None. TECHNIQUE: Multi planar, multi sequence imaging was performed utilizing: T1-weighted, T2-weighted, an d turbo inversion recovery imaging of the cervical spine. IV Contrast: None. FINDINGS: Alignment: The cervical vertebral bodies have preserved heights. Alignment is within normal limits gi manfred patient positioning. Bones: Bone signal is within normal limits. No abnormal bone marrow edema on inversion recovery seque nces. Cord: The spinal cord is unremarkable with regards to their signal intensity and morphology. Discs: Multilevel disc desiccation is present. C2-C3: No significant disc pathology. The spinal canal is patent. Bilateral facet and uncovertebral joint arthropathy are present with mild left neural foraminal stenosis. The right neural foramen is p atent. Maximum intensity C3-C4: A disc osteophyte complex is present which minimally narrows the ventral subarachnoid space. Bilateral facet and uncovertebral joint arthropathy are present with moderate bilateral neural concha inal stenosis. C4-C5: No significant disc pathology. The spinal canal is patent. Bilateral facet and uncovertebral joint arthropathy are present with mild bilateral neural foraminal stenosis. C5-C6: A disc osteophyte complex is present which minimally narrows the ventral subarachnoid space. Bilateral facet and uncovertebral joint arthropathy are present with mild left neural foraminal sten osis. The right neural foramen is patent. C6-C7: No significant disc pathology. The spinal canal is patent. No neural foraminal stenosis. C7-T1: Central disc protrusion without significant spinal canal stenosis. No neural foraminal stenosi s. Other: None. IMPRESSION: 1. No evidence for significant spinal canal stenosis. 2. C7-T1 Central disc herniation without significant spinal canal stenosis. 3. Mild disc degeneration with associated osteoarthritic changes. Neural foraminal stenosis worse at C3-C4 with at least moderate bilateral neural foraminal stenosis.
== END | disposition home or self-care (01) ==
LOC: RADMRIMAIN 07:32
PROVIDERS: ATTEND Nurse Practitioner Family
DX: M50.13 Cervical disc disorder with radiculopathy, cervicothoracic region (principal); M47.22 Other spondylosis with radiculopathy, cervical region; M99.71 Connective tissue and disc stenosis of intervertebral foramina of cervical region
CPT/HCPCS: 72141

== ENCOUNTER → 2023-06-03 | Outpatient (CLI) | payer OTHER ==
--- NOTE | 2023-06-04 08:51 | MM ---
Reason for Exam: Screening (asymptomatic). Last mammogram was performed 1 year(s) and 1 month(s) ago. Patient History: Menarche at age 12. First Full-Term at age 19. Left ovary removed at age 38. Right ovary removed at age 38. Hysterectomy at age 38. Postmenopausal. Ovarian cancer, age 25. Patient used Hormonal Contraceptives for 5 years. 07/20/2021, Benign Core Biopsy on the right side. Risk Values: Kymberly 5 year model risk: 1.5%. NCI Lifetime model risk: 7.9%. Prior Study Comparison: 07/20/2021 Right Diagnostic Mammogram, [facility]. 01/22/2022 Right MG 3D diag mammo w/cad RT, [facility]. 05/27/2022 Bilateral MG screening mammo w CAD, [facility]. Tissue Density: The breast tissue is heterogeneously dense. This may lower the sensitivity of mammography. Findings: Analyzed By CAD. Right breast biopsy clip. There is no suspicious group of microcalcifications or new suspicious mass. Overall Assessment: Benign, BI-RAD 2 Management: Screening Mammogram of both breasts in [address] [facility] will attempt to contact patient to return for supplemental views and ultrasound if indicated. Patient should continue monthly self-breast exams. A clinical breast exam by your physician is recommended on an annual basis. This exam should not preclude additional follow-up of suspicious palpable abnormalities. Note on Kymberly scores and lifetime risk: 1. A Kymberly score greater than 3% is considered moderate risk. If this is the case, consider specialist referral to assess eligibility for a risk reducing agent. 2. If overall lifetime risk for the development of breast cancer is 20% or higher, the patient may qualify for future screening with alternating mammogram and breast MRI. Electronically signed and approved by: Canelo Anand DO
== END | disposition home or self-care (01) ==
LOC: RADMAMWWP 07:50
PROVIDERS: ATTEND Internal Medicine
DX: Z12.31 Encounter for screening mammogram for malignant neoplasm of breast (principal); Z78.0 Asymptomatic menopausal state
CPT/HCPCS: 77063; 77067

== ENCOUNTER → 2024-09-29 | Outpatient (CLI) | payer OTHER ==
--- NOTE | 2024-09-29 11:43 | MM ---
Reason for Exam: Screening (asymptomatic). Last mammogram was performed 1 year(s) and 3 month(s) ago. Patient History: Menarche at age 12. First Full-Term at age 19. Left ovary removed at age 38. Right ovary removed at age 38. Hysterectomy at age 38. Postmenopausal. Ovarian cancer, age 25. Patient used Hormonal Contraceptives for 5 years. 07/20/2021, Benign Core Biopsy on the right side. Risk Values: Kymberly 5 year model risk: 1.5%. NCI Lifetime model risk: 7.7%. Prior Study Comparison: 01/22/2022 Right MG 3D diag mammo w/cad RT, [facility]. 05/27/2022 Bilateral MG screening mammo w CAD, [facility]. 06/03/2023 Bilateral MG 3D screening mammo w/cad, [facility]. Tissue Density: The breasts are heterogeneously dense, which may obscure small masses. Findings: Analyzed By CAD. Right breast: There is no suspicious group of microcalcifications or new suspicious mass. Left breast: There is no suspicious group of microcalcifications or new suspicious mass. Overall Assessment: Negative, BI-RAD 1 Management: Screening Mammogram of both breasts in [address] [facility] will attempt to contact patient to return for supplemental views and ultrasound if indicated. Patient should continue monthly self-breast exams. A clinical breast exam by your physician is recommended on an annual basis. This exam should not preclude additional follow-up of suspicious palpable abnormalities. Note on Kymberly scores and lifetime risk: 1. A Kymberly score greater than 3% is considered moderate risk. If this is the case, consider specialist referral to assess eligibility for a risk reducing agent. 2. If overall lifetime risk for the development of breast cancer is 20% or higher, the patient may qualify for future screening with alternating mammogram and breast MRI. [facility], , 09/29/2024 11:35 AM. Electronically signed and approved by: Canelo Anand DO
== END | disposition home or self-care (01) ==
LOC: RADMAMWWP 10:24
PROVIDERS: ATTEND Family Medicine
DX: Z12.31 Encounter for screening mammogram for malignant neoplasm of breast (principal); R92.333 Mammographic heterogeneous density, bilateral breasts; Z78.0 Asymptomatic menopausal state
CPT/HCPCS: 77063; 77067

== ENCOUNTER 2024-12-20 16:36 | Emergency (ER) | payer OTHER ==
--- NOTE | 2024-12-20 17:09 | ED ---
Extremity Problem HPI - General Chief complaint: Skin/Abscess/Foreign Body Stated complaint: L Hand Swelling/Pain Time Seen by Provider: 12/20/24 16:55 Source: patient, RN notes reviewed, old records reviewed Mode of arrival: ambulatory Limitations: no limitations - History of Present Illness Initial comments: This is a 59-year-old female to ER with fall 3 weeks ago she fell on her left wrist and recently had a refill on her left wrist with now increased swelling and pain. Patient presents today for evaluation regards to persistent pain in the left wrist concern for fracture MD Complaint: extremity pain, extremity swelling, joint swelling, joint pain -: days(s) Location: left, upper extremity History of Same: Yes -: Yes myalgia, Yes arthralgia Radiation: proximal, distal Severity scale (1-10): 6 Quality: aching Consistency: constant Improves with: nothing Worsens with: nothing Associated Symptoms: denies other symptoms - Related Data Home Medications Medication Instructions Recorded Confirmed Albuterol Sulfate [Albuterol 2 puff PO Q6H PRN 04/04/21 06/13/22 Sulfate Hfa] Ipratropium-Albuterol Nebulize 3 ml INHALATION Q6H PRN 04/04/21 06/13/22 [Duoneb 0.5 mg-3 mg/3 ml Soln] Loratadine [Claritin] 10 mg PO DAILY 04/04/21 06/13/22 Simvastatin [Zocor] 5 mg PO HS 04/04/21 06/13/22 amLODIPine BESYLATE 5 mg PO HS 04/04/21 06/13/22 lisinopriL [Zestril] 30 mg PO DAILY 04/04/21 06/13/22 oxyBUTYnin chloride [Ditropan] 5 mg PO DAILY 04/04/21 06/13/22 Cephalexin [Keflex] 500 mg PO Q12HR 08/03/21 06/13/22 Ibuprofen [Motrin] 600 mg PO Q6HR PRN 08/03/21 06/13/22 Previous Rx's Medication Instructions Recorded Ketorolac [Toradol] 10 mg PO Q6HR #20 tab 12/20/24 Allergies Allergy/AdvReac Type Severity Reaction Status Date / Time No Known Allergies Allergy Verified 12/20/24 16:52 Review of Systems ROS Statement: Those systems with pertinent positive or pertinent negative responses have been documented in the HPI. ROS Other: All systems not noted in ROS Statement are negative. Past Medical History Past Medical History: Asthma, Cancer, Heart Failure, COPD, Hearing Disorder / Deafness, Hyperlipidemia, Hypertension, Osteoarthritis (OA) Additional Past Medical History / Comment(s): POSSIBLE HEART FAILURE, MOLE PREG- TREATED WITH CHEMO History of Any Multi-Drug Resistant Organisms: None Reported Date of last positivie culture/infection: 09/06/21 MDRO Source:: MRSA AXILLA Past Surgical History: Section, Cholecystectomy Additional Past Surgical History / Comment(s): "half of rt lung removed r/t mass", RIGHT HAND SURGERY. right forearm surgery-WITH HARDWARE. left hand surgery Past Anesthesia/Blood Transfusion Reactions: Previous Problems w/ Anesthesia Additional Past Anesthesia/Blood Transfusion Reaction / Comment(s): PATIENT STATES TAKES HER LONGER TO WAKE UP " Past Psychological History: No Psychological Hx Reported Smoking Status: Never smoker Past Alcohol Use History: Rare Past Drug Use History: Marijuana - Past Family History Father Family Medical History: Cancer Additional Family Medical History / Comment(s): brain General Exam Limitations: no limitations General appearance: alert, in no apparent distress Head exam: Present: atraumatic, normocephalic, normal inspection Eye exam: Present: normal appearance, PERRL, EOMI. Absent: scleral icterus, conjunctival injection, periorbital swelling ENT exam: Present: normal exam, mucous membranes moist Neck exam: Present: normal inspection. Absent: tenderness, meningismus, lympha denopathy Respiratory exam: Present: normal lung sounds bilaterally. Absent: respiratory distress, wheezes, rales, rhonchi, stridor Cardiovascular Exam: Present: regular rate, normal rhythm, normal heart sounds. Absent: systolic murmur, diastolic murmur, rubs, gallop, clicks GI/Abdominal exam: Present: soft, normal bowel sounds. Absent: distended, tenderness, guarding, rebound, rigid Extremities exam: Present: normal inspection, full ROM, normal capillary refill. Absent: tenderness, pedal edema, joint swelling, calf tenderness Back exam: Present: normal inspection Neurological exam: Present: alert, oriented X3, CN II-XII intact Psychiatric exam: Present: normal affect, normal mood Skin exam: Present: warm, dry, intact, normal color. Absent: rash Course Vital Signs 12/20/24 12/20/24 16:49 18:21 Temperature 97.7 F 98.0 F Pulse Rate 81 76 Respiratory 17 20 Rate Blood Pressure 102/66 111/72 O2 Sat by Pulse 96 97 Oximetry - Reevaluation(s) Reevaluation #1: 12/20/24 17:14 Medical records reviewed Reevaluation #2: 12/20/24 21:45 Patient symptoms improved here in the ER Reevaluation #3: 12/20/24 21:45 Patient informed of results questions answered Reevaluation #4: Was pt. sent in by a medical professional or institution (, [facility], [facility]LLNESS [employer]CTOR, urgent care, hospital, or long-term...) When possible be specific @ -no Did you speak to anyone other than the patient for history (EMS, parent, family, police, friend...)? What history was obtained from this source @ -no Did you review nursing and triage notes (agree or disagree)? Why? @ -agree Are old charts reviewed (outside hosp., previous admission, EMS record, old EKG, old radiological studies, urgent care reports/EKG's, long-term records)? Report findings @ -yes Differential Diagnosis (chest pain, altered mental status, abdominal pain women, abdominal pain men, vaginal bleeding, weakness, fever, dyspnea, syncope, headache, dizziness, GI bleed, back pain, seizure, CVA, palpatations, mental health, musculoskeletal)? @ -prior EKG interpreted by me (3pts min.). @ -no X-rays interpreted by me (1pt min.). @ -yes negative for acute disease CT interpreted by me (1pt min.). @ -no U/S interpreted by me (1pt. min.). @ -no What testing was considered but not performed or refused? (CT, X-rays, U/S, labs)? Why? @ -none What meds were considered but not given or refused? Why? @ -none Did you discuss the management of the patient with other professionals (professionals i.e. [facility], HEALTH AND WELLNESS INSTRUCTOR, lab, RT, psych nurse, manager social, photovoltaic subcontractor, teacher, asset protection officer, correctional case records supervisor)? Give summary @ -no Was smoking cessation discussed for >3mins.? @ -no Was critical care preformed (if so, how long)? @ -no Were there social determinants of health that impacted care today? How? (Homelessness, low income, unemployed, alcoholism, drug addiction, transportation, low edu. Level, literacy, decrease access to med. care, skilled nursing, rehab)? @ -none Was there de-escalation of care discussed even if they declined (Discuss DNR or withdrawal of care, Hospice)? DNR status @ -no What co-morbidities impacted this encounter? (DM, HTN, Smoking, COPD, CAD, Cancer, CVA, ARF, Chemo, Hep., AIDS, mental health diagnosis, sleep apnea, morbid obesity)? @ -none Was patient admitted / discharged? Hospital course, mention meds given and route, prescriptions, significant lab abnormalities, going to OR and other pertinent info. @ - 59 female left upper extremity swelling and pain wrist pain at this time patient encouraged to continue to take Motrin Tylenol for pain and can be discharged Discharged Undiagnosed new problem with uncertain prognosis? @ -no Drug Therapy requiring intensive monitoring for toxicity (Heparin, Nitro, Insulin, Cardizem)? @ -no Were any procedures done? @ -no Diagnosis/symptom? @ -Left arm swelling and severe wrist pain Acute, or Chronic, or Acute on Chronic? @ -Acute Uncomplicated (without systemic symptoms) or Complicated (systemic symptoms)? @ -Complicated Side effects of treatment? @ -no Exacerbation, Progression, or Severe Exacerbation? @ -exacerbation Poses a threat to life or bodily function? How? (Chest pain, [place], [place], pneumonia, PE, COPD, DKA, ARF, appy, cholecystitis, CVA, Diverticulitis, Homicidal, Suicidal, threat to staff... and all critical care pts) @ -no Medical Decision Making - Medical Decision Making 59 female left upper extremity swelling and pain wrist pain at this time patient encouraged to continue to take Motrin Tylenol for pain and can be discharged - Radiology Data Radiology results: report reviewed (X-ray left wrist negative for acute disease), image reviewed Disposition Clinical Impression: Left wrist pain, Dorsal hand hard edema, post-traumatic Disposition: HOME SELF-CARE Condition: Good Instructions (If sedation given, give patient instructions): Wrist Injury (ED), Swollen Joint (ED), Edema (ED) Prescriptions: Ketorolac [Toradol] 10 mg PO Q6HR #20 tab Is patient prescribed a controlled substance at d/c from ED?: No Referrals: Tamiko Steel MD [Primary Care Provider] - 1-2 days Time of Disposition: 18:00
[2024-12-20] MEDS: traMADol 50 MG TAB PO STA (17:13)
[2024-12-20] MEDS: ETODOLAC 400 MG TAB PO STA (17:28)
--- NOTE | 2024-12-20 18:13 | XR ---
EXAMINATION TYPE: XR wrist complete LT DATE OF EXAM: 12/20/2024 5:36 PM COMPARISON: None CLINICAL INDICATION: Female, 59 years old with history of pain, pain TECHNIQUE: XR wrist complete LT; examined in the Frontal, navicular, lateral, and oblique. FINDINGS: No acute osseous pathology, joint dislocation, or joint effusion. No evidence of any soft tissue swelling is seen. IMPRESSION: No acute osseous pathology. [facility], , 12/20/2024 6:11 PM
[2024-12-20] MEDS: traMADol 50 MG STARTER PACK 3 TAB BTL PO STA (18:19)
[2024-12-20 18:22] VITALS: BP 111/72; PULSE 76; RESP 20; TEMP 98
== END 2024-12-20 18:22 | disposition home or self-care (01) ==
LOC: EC 16:36
DX: R22.32 Localized swelling, mass and lump, left upper limb (principal)
CPT/HCPCS: 99283

== ENCOUNTER → 2025-01-10 | Outpatient (CLI) | payer OTHER ==
--- NOTE | 2025-01-10 17:48 | CT ---
EXAMINATION TYPE: CT upper extremity LT wo con CT DLP: 232.40 mGycm, Automated exposure control for dose reduction was used. DATE OF EXAM: 01/10/2025 5:19 PM COMPARISON: Left wrist radiograph 12/20/2024 CLINICAL INDICATION:Female, 59 years old with history of M79.642 L HAND PAIN, M25.532 L WRIST PAIN; P HH, PT FELL 1 MONTH AGO, ANTERIOR LEFT WRIST PAIN TECHNIQUE: Axial images were obtained of the left upper extremity without the use of IV contrast. Ad ditional coronal and sagittal reformatted images and soft tissue and bone window were obtained for re view. 3-D reconstruction was created on a separate workstation. FINDINGS: There is no evidence of fracture, subluxation, or dislocation. No osseous erosions. No sign ificant joint space narrowing or osteophyte formation. Small subchondral cystic changes involving the scaphoid. No significant soft tissue swelling or joint effusion is identified. No focal muscular atr ophy or edema is identified. No radiopaque foreign body identified. IMPRESSION: No acute fracture or dislocation. Consider further evaluation with MRI if there is continued clinical concern. [facility], , 01/10/2025 5:46 PM
== END | disposition home or self-care (01) ==
LOC: RADCTMAIN 15:32
PROVIDERS: ATTEND Family Medicine
DX: M79.642 Pain in left hand (principal); M25.532 Pain in left wrist

== ENCOUNTER → 2025-03-03 | Outpatient (CLI) | payer OTHER ==
--- NOTE | 2025-03-14 19:41 | MR ---
EXAMINATION TYPE: MR wrist LT wo con, MR hand LT wo con DATE OF EXAM: 03/03/2025 5:05 PM COMPARISON: None. CLINICAL INDICATION: Female, 59 years old with history of M79.642 L HAND PAIN, M25.532 L WRIST PAIN, Left Wrist pain and swelling x6 months, Lt fingers numb Hx Fell on Left arm (accession [id number]), Lef t hand pain and swelling x6 months, fingers go numb, Hx Fell on Lt arm (accession [id number]) TECHNIQUE: * Non-contrast multiplanar, multiecho imaging of the left hand was performed, including T1-weighte d and fluid sensitive sequences. * Non-contrast multiplanar, multiecho imaging of the left wrist was performed, including T1-weighte d and fluid sensitive sequences. FINDINGS: Alignment: Anatomic. Bones: No acute fracture. Joint spaces: Advanced degenerative change about the triscaphe joint with prominent subchondral cyst at the distal scaphoid pole and subjacent edema-like marrow signal. Effusions: Small radioscaphoid joint effusion. Additional nonspecific trace volume of fluid in the pi so-triquetral recess. Tendons: Extensors: Short segment longitudinal split tear of the extensor carpi ulnaris at the level of the ul kevin styloid with minimal adjacent tenosynovitis. Nonspecific mild tenosynovitis of the fourth extenso r compartment at the level of the metacarpals. Flexors: Intact. No tenosynovitis. Triangular fibrocartilage: Degeneration of the peripheral attachments with signal abnormality and dim inutive appearance of the volar band. Signal abnormality of the central disc with trace fluid in the DRUJ. Ligaments: Scapholunate: Thickened appearance with signal alteration, probably sequelae of prior injury. Subtle widening of the scapholunate interval, better appreciated by radiograph. Lunatotriquetral: Intact. Extrinsic ligaments: Dorsal and Volar ligamentous structures grossly intact. Muscles: Preserved bulk/signal. Other soft tissues: Within normal limits. IMPRESSION: 1. TFCC tear and degeneration. 2. Longitudinal extensor carpi ulnaris tear with mild tenosynovitis. 3. Scapholunate degeneration, with prior injury suggested. 4. Osteoarthrosis, worst at the triscaphe joint. [facility], , 03/14/2025 7:39 PM
== END | disposition home or self-care (01) ==
LOC: RADMRIMAIN 15:47
PROVIDERS: ATTEND Family Medicine
DX: S63.592A Other specified sprain of left wrist, initial encounter (principal); M65.932 Unspecified synovitis and tenosynovitis, left forearm; M19.032 Primary osteoarthritis, left wrist; W19.XXXA Unspecified fall, initial encounter

== ENCOUNTER → 2025-03-24 | Outpatient (CLI) | payer OTHER ==
--- NOTE | 2025-03-24 16:52 | CT ---
EXAMINATION TYPE: CT shoulder RT wo con DATE OF EXAM: 03/24/2025 4:35 PM COMPARISON: None. CLINICAL INDICATION: Female, 59 years old with history of M85.611, G89.29, M25.511 PAIN IN RIGHT SHOULDER; PHH, right shoulder pain, lump marked by bb TECHNIQUE: Axial images were obtained of the CT shoulder RT wo con, Additional coronal and sagittal r eformatted images and soft tissue and bone window were obtained for review. 3-D reconstruction was cr eated on a separate workstation. CT DLP: 334.5 mGycm, Automated exposure control for dose reduction was used. FINDINGS: There is a circumscribed fluid density lesion superior to the acromion clavicular joint measuring ryan roximately 2.3 x 1.8 cm. No internal enhancement within this lesion and fluid density is consistent w ith simple fluid. Moderate to severe, navicular joint degenerative osteoarthritis with subchondral cy stic changes. There is mild to moderate glenohumeral degenerative osteoarthritis. Suspected full-thickness complete tear of the supraspinatus with fatty with atrophy of the s upraspinatus musculature. Partially visualized emphysema in the lungs. No acute fracture or dislocati on. No unexpected radiopaque foreign body. IMPRESSION: 1. Circumscribed fluid density lesion measuring 2.3 x 1.8 cm superior to the acromion clavicular kasey nt felt to most likely reflect a AC joint synovial cyst. 2. Moderate to severe acromioclavicular degenerative osteoarthritis. 3. Suspected full-thickness complete tear of the supraspinatus as above. More definitive evaluation could be obtained with MRI right shoulder as clinically warranted. [facility], , 03/24/2025 4:50 PM
== END | disposition home or self-care (01) ==
LOC: RADCTMAIN 15:50
PROVIDERS: ATTEND Family Medicine
DX: M19.011 Primary osteoarthritis, right shoulder (principal); M85.611 Other cyst of bone, right shoulder